=== PATIENT | female | born 1975 | race Caucasian/White ===

== ENCOUNTER 2016-06-16 14:47 | Emergency (ER) | payer OTHER ==
[~2016-06-16] VITALS: Ht 157.5 cm; Wt 49.9 kg
[2016-06-16 16:31] LABS: ABSOLUTE BASOPHIL COUNT 0 /CUMM (0.0-0.2); ABSOLUTE EOSINOPHIL COUNT 0 /CUMM (0.0-0.7); ABSOLUTE GRANULOCYTE CT 2.8 /CUMM (1.4-6.5); ABSOLUTE LYMPH COUNT 2.4 /CUMM (1.2-3.4); ABSOLUTE MONOCYTE COUNT 0.5 /CUMM (0.10-0.60); BASOPHIL % 0 % (0.0-2.0); EOSINOPHIL % 0.5 % (0-5); GRANULOCYTE % 49.3 % (42.2-75.2); HEMATOCRIT 34.5 % (37-47); MEAN CORPUSCULAR HGB 22.4 PG (27.0-31.0); MEAN CORPUSCULAR HGB CONC 31.9 G/DL (33.0-37.0); MEAN CORPUSCULAR VOLUME 70.2 FL (81.0-99.0); MEAN PLATELET VOLUME 6.5 FL (7.4-10.4); PLATELET COUNT 336 /CUMM (130-400); RBC DISTRIBUTION WIDTH 22.3 % (11.5-14.5); RED BLOOD CELL CT 4.92 /CUMM (4.20-5.40); WHITE BLOOD CELL COUNT 5.8 /CUMM (4.8-10.8)
--- NOTE | 2016-06-16 16:51 | ED GI/GU/ABDOMINAL COMPLAINT ---
History of Present Illness General Chief Complaint: ETOH/Drug Related Complaint Stated Complaint: ETOH Source: patient, old records Exam Limitations: clinical intoxication Vital Signs & Intake/Output Vital Signs & Intake/Output Vital Signs Date Time Temp Pulse Resp B/P Pulse O2 O2 Flow FiO2 Ox Delivery Rate 06/16 1946 98.5 113 20 138/69 98 Room Air 06/16 1511 98.6 120 18 115/87 97 Room Air Allergies Coded Allergies: NO KNOWN ALLERGIES (11/20/11) Reconcile Medications No Known Home Medications Triage Note: PT DROPPED OFF TO ER BY HER EX FOR ETOH DETOX , WHEN THIS NURSE ASKED PT IF SHE WOULD LIKE DETOX SHE STATED NO. PT ADMITS TO DRINKING BUT CANT REMEMBER WHAT SHE DRANK. PT KEEPS ASKING FOR FOOD DURING THE TRIAGE PROCESS , MADE AWARE THAT STAFF WOULD GET HER FOOD ONCE SHE IS IN A ROOM. PT NOTED TO BE VERY UNSTEADY, PLACED IN WHEEL CHAIR Triage Nurses Notes Reviewed? yes ? N Is pt currently ? No HPI: Patient presents for evaluation of a possible stomach virus. Patient states that she has had a number of episodes of vomiting and 2 episodes of bloody diarrhea since onset of symptoms. Patient is somewhat vague in the details of her illness and admits to alcohol use today. Per the patient's nurse, she was dropped off at the emergency department by her boyfriend due to extreme alcohol intoxication. (MITCH GALVEZ,JEANINE Murry) Past History Travel History Traveled to [place] past 21 day No Medical History Any Pertinent Medical History? see below for history Neurological: NONE EENT: NONE Cardiovascular: hypertension, hyperlipidemia Respiratory: NONE Gastrointestinal: NONE Hepatic: NONE Renal: NONE Musculoskeletal: NONE Psychiatric: alcohol dependence Endocrine: NONE Blood Disorders: NONE Cancer(s): NONE FRAMER/Reproductive: NONE Surgical History Surgical History: non-contributory Psychosocial History Who do you live with Family Services at Home None What is your primary language Greenlandic Tobacco Use: Never used ETOH Use: alcoholic Illicit Drug Use: denies illicit drug use Family History Hx Contributory? No (JEANINE MEYER MD) Review of Systems Review of Systems Constitutional: Reports: no symptoms. EENTM: Reports: no symptoms. Respiratory: Reports: no symptoms. Cardiovascular: Reports: no symptoms. GI: Reports: see HPI. Genitourinary: Reports: no symptoms. Musculoskeletal: Reports: no symptoms. Skin: Reports: no symptoms. Neurological/Psychological: Reports: no symptoms. Hematologic/Endocrine: Reports: no symptoms. Immunologic/Allergic: Reports: no symptoms. All Other Systems: Reviewed and Negative (MITCH GALVEZ,JEANINE Murry) Physical Exam Physical Exam Gastrointestinal: see below Comments: Gen.: Well-nourished, well-developed, no acute respiratory distress. EtOH-like odor. Appears clinically intoxicated. Head: Normocephalic, atraumatic. Eyes: Normal inspection bilaterally Ears: Normal inspection bilaterally Nose: Normal inspection Throat/mouth : Moist mucosa Neck: Supple, full range of motion, no goiter Heart: Regular rate and rhythm, no murmurs rubs or gallops Lungs: Clear to auscultation bilaterally with normal air entry Chest: Nontender Back: Normal range of motion Abdomen: Soft, nontender, nondistended, normal bowel sounds Extremities: Normal range of motion grossly, equal radial pulses, no cyanosis clubbing or edema Neurologic: Cranial nerves grossly intact, speech is clear Skin: warm and dry Psychiatric: Calm, cooperative, no apparent delusions or hallucinations Core Measures ACS in differential dx? No Severe Sepsis Present: No Septic Shock Present: No (MITCH GALVEZ,JEANINE Murry) Progress Differential Diagnosis: ALCOHOL INTOXICATION, ALCOHOL DEPENDENCE, GASTRITIS Plan of Care: Orders Procedure Date/time Status Regular Diet 06/17 B Active URINE DRUGS OF ABUSE 06/16 160 Active ETHANOL 06/16 1608 Complete COMPREHENSIVE METABOLIC PANEL 06/16 1608 Complete CBC WITHOUT DIFFERENTIAL 06/16 1608 Complete Laboratory Tests 06/16/16 1624: Anion Gap 17 H, Estimated GFR > 60, BUN/Creatinine Ratio 23.3, Glucose 152 H, Calcium 8.7, Total Bilirubin 0.4, AST 86 H, ALT 31, Alkaline Phosphatase 92, Total Protein 8.1, Albumin 4.3, Globulin 3.8, Albumin/Globulin Ratio 1.1, CBC w Diff MAN DIFF ORDERED, RBC 4.92, MCV 70.2 L, MCH 22.4 L, RDW 22.3 H, MPV 6.5 L, Gran % 49.3, Lymphocytes % 41.1, Monocytes % 9.1, Eosinophils % 0.5, Basophils % 0 L, Absolute Granulocytes 2.8, Segmented Neutrophils 55, Absolute Lymphocytes 2.4, Lymphocytes 39, Monocytes 6, Absolute Monocytes 0.5, Absolute Eosinophils 0, Absolute Basophils 0, Platelet Estimate VERIFIED BY SMEAR, Hypochromic-Microcytic 1+, Microcytic Cells 1+, PUBS MCHC 31.9 L, Fld Total RBCs Counted 100, Serum Alcohol 347.0 Initial ED EKG: none Comments: 06/16/2016 5:08:56 PM patient has eaten dinner here in the emergency department without apparent difficulty. 06/16/2016 7:01:38 PM patient signed out to Dr. Clark. Patient will require reevaluation when more sober. (MITCH GALVEZ,JEANINE Murry) Comments: Patient is awake alert and oriented 3. She walks with a steady gait and speech coherently. Patient denies any suicidal or homicidal ideations. Patient does not want to talk to anybody about detox. Patient wants to just go home. The patient's breathalyzer is 0.044. Patient is sober and is capable of making her own decisions. (MAYDA GALVEZ,SHYAM Chopra) Departure Departure Condition: Stable Clinical Impression Primary Impression: Alcohol intoxication Qualifiers: Complication of substance-induced condition: uncomplicated Qualified Code: F10.120 - Alcohol abuse with intoxication, uncomplicated Referrals: ADOLFO SHINE MD (PCP/Family) Departure Forms: Customer Survey General Discharge Information Prescriptions: Current Visit Scripts No Known Home Medications (MITCH GALVEZ,JEANINE Murry) Departure Disposition: HOME OR SELF CARE Additional Instructions: Return if symptoms worsen or for any concerns. (SHYAM CLARK MD)
[2016-06-16 19:47] VITALS: BP 138/69
== END 2016-06-16 20:23 ==
LOC: ERH 14:47
PROVIDERS: Emergency Medicine
DX: F10.129 Alcohol abuse with intoxication, unspecified (principal)
CPT/HCPCS: 80307; G0480